=== PATIENT | male | born 1930 | race Caucasian/White ===

== ENCOUNTER 2017-01-15 05:18 | Day surgery (SDC) ==
[2017-01-11 14:18] LABS: MANUAL DIFF NEEDED? NO
[2017-01-11 14:21] LABS: BASO% 0.3 % (0.0-0.8); EOS# 1.35 X1000 (0.0-0.7); EOS% 13.7 % (0.0-10.0); HEMATOCRIT 35.5 % (42.0-52.0); HEMOGLOBIN 11.5 g/dL (14.0-18.0); IMM GRAN# 0.02 X1000 (0.0-0.04); IMM GRAN% 0.2 % (0.0-0.5); LYMPH% 21.3 % (20.5-51.1); MCH 30.7 PG (27-31); MCHC 32.4 g/dL (33-37); MCV 94.9 FL (81-99); MONO# 0.69 X1000 (0.11-0.59); MPV 8.9 FL (7.4-10.4); NEUT% 57.5 % (42.2-75.2); PLT 299 X1000 (130-400); RBC 3.74 XMIL (4.7-6.1)
[2017-01-11 15:04] LABS: CALCIUM 8.4 mg/dL (8.8-10.2)
[2017-01-15] MEDS ORDERED: LR 1,000 ML ONE (05:48)
[2017-01-15] MEDS ORDERED: KEFZOL 2 GM/D5W 50 ML ONE (05:48)
[2017-01-15] MEDS ORDERED: SENSORCAINE-MPF 0.5%/EPI 1:200,000 ONE (06:50)
[2017-01-15] MEDS ORDERED: FENTANYL ONE (07:59)
[2017-01-15] MEDS ORDERED: DIPRIVAN 1% ONE (08:00)
[2017-01-15] MEDS ORDERED: NEO-SYNEPHRINE ONE (08:46)
[2017-01-15] MEDS ORDERED: XYLOCAINE-MPF 2% ONE (08:47)
[2017-01-15] MEDS ORDERED: EPHEDRINE ONE (08:47)
--- NOTE | 2017-01-15 09:00 | OPERATIVE NOTE ---
PROCEDURE DATE: 01/15/2017 PREOPERATIVE DIAGNOSIS: Right carpal tunnel syndrome. POSTOPERATIVE DIAGNOSIS: Right carpal tunnel syndrome. PROCEDURE PERFORMED: Right carpal tunnel release. ANESTHESIA: General. SURGEON: Jason Milian MD COMPLICATIONS: None. BLOOD LOSS: Minimal. DESCRIPTION OF PROCEDURE: The patient was brought to operative suite and placed in supine position. After satisfactory administration of general anesthesia, a well-padded tourniquet was placed on the right proximal arm. The right upper extremity was prepped and draped in the usual fashion. The arm was exsanguinated. Tourniquet insufflated to 250 torr. A longitudinal incision was made beginning 2 cm distal to the distal wrist crease, in line with the third webspace, extended distally 2 cm. It was dissected sharply through the skin and subcutaneous tissue, well away from motor recurrent branch of the median nerve and the palmar cutaneous branch of the median nerve. The palmar cutaneous fascia, transverse carpal ligament, and distal volar fascia of the forearm were divided sharply under direct visualization. The contents of the carpal tunnel were inspected. There were no neural strictures, no tendon adhesions, no mass effects, no other pathology identified. The wound was then reapproximated with interrupted nylon suture. The wound and carpal tunnel were injected with Marcaine and a sterile dressing was applied. The patient tolerated the procedure well without complication. At the end of the procedure, all counts correct x2. The patient was transferred to the recovery room in stable condition.
[2017-01-15 09:27] VITALS: BP 140/69
== END 2017-01-15 09:28 | disposition home or self-care (01) ==
LOC: OPS 05:18
PROVIDERS: ATTEND Orthopaedic Surgery
DX: G56.01 Carpal tunnel syndrome, right upper limb (principal); I10 Essential (primary) hypertension; E03.9 Hypothyroidism, unspecified; Z85.3 Personal history of malignant neoplasm of breast
CPT/HCPCS: 80048; 85025; J0690; J2370; J3010; J7120; S0020

== ENCOUNTER 2017-06-07 10:48 | Inpatient (IN) ==
[2017-06-07 11:51] LABS: MANUAL DIFF NEEDED? NO
[2017-06-07 11:52] LABS: BASO% 0.4 % (0.0-0.8); EOS# 0.63 X1000 (0.0-0.7); EOS% 7.7 % (0.0-10.0); HEMATOCRIT 30.8 % (42.0-52.0); HEMOGLOBIN 10.1 g/dL (14.0-18.0); IMM GRAN# 0.01 X1000 (0.0-0.04); IMM GRAN% 0.1 % (0.0-0.5); LYMPH# 1.51 X1000 (1.2-3.4); LYMPH% 18.6 % (20.5-51.1); MCH 31.7 PG (27-31); MCHC 32.8 g/dL (33-37); MCV 96.6 FL (81-99); MONO# 0.71 X1000 (0.11-0.59); MONO% 8.7 % (1.7-9.3); MPV 8.6 FL (7.4-10.4); NEUT% 64.5 % (42.2-75.2); PLT 328 X1000 (130-400); RBC 3.19 XMIL (4.7-6.1)
[2017-06-07 12:09] LABS: INR 1.06 (0.86-1.15); PROTIME 14.1 Seconds (12.1-15.5)
[2017-06-07 12:14] LABS: ALBUMIN 2.5 g/dL (3.5-5.0); CALCIUM 7.8 mg/dL (8.8-10.2); POTASSIUM 4.5 mmol/L (3.5-5.1); TOTAL BILIRUBIN 0.2 mg/dL (0.20-1.00); TOTAL PROTEIN 5.6 g/dL (6.3-8.3)
[2017-06-07] MEDS ORDERED: LOVENOX 1 MG/KG SUBQ ONE (13:21)
[2017-06-07] MEDS ORDERED: NORCO-7.5 PO ONE (13:22)
[2017-06-07] MEDS ORDERED: LOVENOX ONE (13:25)
[2017-06-07] MEDS ORDERED: PERCOCET-10 PO PRN (16:25)
[2017-06-07] MEDS ORDERED: COMPAZINE PO PRN (16:25)
[2017-06-07] MEDS ORDERED: ROBAXIN PO PRN (16:25)
[2017-06-07] MEDS ORDERED: LASIX PO PRN (16:25)
[2017-06-07] MEDS ORDERED: PHENERGAN PO PRN (16:25)
[2017-06-07] MEDS ORDERED: EUCERIN CREAM TOP PRN (16:25)
[2017-06-07] MEDS ORDERED: NORCO-7.5 PO PRN (16:25)
[2017-06-07] MEDS ORDERED: TESSALON PO PRN (16:25)
[2017-06-07] MEDS ORDERED: IMODIUM PO PRN (16:25)
[2017-06-07] MEDS ORDERED: ZOFRAN PO PRN (16:25)
[2017-06-07] MEDS ORDERED: TYLENOL PO PRN (16:25)
[2017-06-07] MEDS ORDERED: LOVENOX SUBQ SCH (17:00)
[2017-06-07] MEDS: XANAX PO SCH ×2 (17:13→20:29)
[2017-06-07] MEDS ORDERED: MORPHINE IV ONE (18:24)
[2017-06-07] MEDS ORDERED: MS CONTIN PO SCH (18:30)
--- NOTE | 2017-06-07 19:33 | HISTORY AND PHYSICAL ---
CHIEF COMPLAINT: DVT right leg. HISTORY OF PRESENT ILLNESS: This is an 87-year-old, male who has a history of TIA, hypertension, sleep apnea, hypothyroid, chronic back pain, left breast cancer, who presents to the emergency room to be evaluated for right lower extremity pain and swelling. He was found to have a popliteal DVT. He was given Lovenox 1 mg/kg and admitted for further evaluation and treatment. PAST MEDICAL HISTORY: Hypertension, chronic back pain, hypothyroid, TIA. PAST SURGICAL HISTORY: Subtotal gastrectomy due to bleeding ulcers, left mastectomy and multiple back surgeries. SOCIAL HISTORY: He denies alcohol, tobacco, or illicit drug use. He is a retired pharmacist. He does live alone but he has family that lives close and is active in his care. ALLERGIES: No known drug allergies. HOME MEDICATIONS: A list will be obtained. REVIEW OF SYSTEMS: A 14 point review of systems was discussed with the patient with pertinent positives being stated in the HPI. He denied chest pain, palpitations, dizziness, syncope, shortness of breath, PND, orthopnea, nausea, vomiting, diarrhea, constipation, black or bloody vomitus, black or bloody stools, hematuria, dysuria, frequency, urgency. PHYSICAL EXAMINATION: GENERAL: This is an 87-year-old male who is sitting in bed with no distress. VITAL SIGNS: Blood pressure is 143/65 with a heart rate of 90, respirations are 16, temperature is 97.6 degrees oral. room air saturations 98-100%. HEENT: Head is normocephalic, atraumatic. Pupils equal, round, reactive to light. EOMs are intact. Sclerae are anicteric. Mucous membranes are moist. NECK: Supple with trachea midline. CARDIOVASCULAR: Regular rate and rhythm. S1 and S2 are appreciated. PULMONARY: Breath sounds are clear with no increased work of breathing noted. GASTROINTESTINAL: Abdomen is soft, nontender, nondistended with bowel sounds in all 4 quadrants. GENITOURINARY: Deferred. EXTREMITIES: No clubbing, cyanosis, or edema to upper extremities and left lower extremity. Right lower extremity has about 3+ pitting edema from just above the knee down to the foot with pulses palpable x4. NEUROLOGIC: He is alert and oriented x3. Cranial nerves 2-12 grossly intact. DIAGNOSTICS: WBC 8.1 with hemoglobin 10.1, hematocrit 30.8 and platelets of 328,000. D-dimer is 1.86. Sodium is 135, potassium 4.5, BUN 17, creatinine 1.2, glucose of 118. Lower extremity Doppler revealed a popliteal DVT per ER records. ASSESSMENT AND PLAN: This is an 87-year-old male who presented to the emergency room complaining of swelling, edema and pain to his right lower extremity. He was found to have a right popliteal deep vein thrombus. 1. Right popliteal deep vein thrombus. 2. Gastroesophageal reflux disease. 3. Hypertension. 4. Chronic back pain on chronic narcotics. 5. GI prophylaxis and DVT prophylaxis. We will continue Lovenox b.i.d. tonight. We will start Xarelto in the morning. We will continue his Zantac. 6. Further treatments pending hospital course. Dictated by MINOR Emerson for Marcel Sosa MD cc: MINOR Emerson MD
[2017-06-07] MEDS: FLOMAX PO SCH (20:29)
[2017-06-07] MEDS: METAMUCIL PO SCH (20:31)
[2017-06-07] MEDS: TEMOVATE 0.05% CREAM TOP SCH (20:31)
[2017-06-07] MEDS ORDERED: PRAVACHOL PO SCH (21:00)
[2017-06-07] MEDS: MS CONTIN PO SCH (23:25)
[2017-06-08] MEDS ORDERED: LOVENOX SUBQ SCH (01:00)
[2017-06-08] MEDS ORDERED: XANAX PO SCH (06:00)
[2017-06-08] MEDS: MS CONTIN PO SCH ×2 (06:12→15:28)
[2017-06-08 06:50] LABS: AGAP 7; BUN 20 mg/dL (8-22); CALCIUM 8.1 mg/dL (8.8-10.2); CHLORIDE 107 mmol/L (98-107); COSMO 284; POTASSIUM 5.1 mmol/L (3.5-5.1); SODIUM 140 mmol/L (136-145); TCO2 26 mmol/L (25-35)
[2017-06-08] MEDS ORDERED: SYNTHROID PO SCH (07:00)
[2017-06-08 07:48] LABS: HEMATOCRIT 31.9 % (42.0-52.0); HEMOGLOBIN 10.6 g/dL (14.0-18.0); MCH 31.9 PG (27-31); MCHC 33.2 g/dL (33-37); MCV 96.1 FL (81-99); RBC 3.32 XMIL (4.7-6.1)
[2017-06-08] MEDS ORDERED: ZOFRAN ODT PO PRN (08:37)
[2017-06-08] MEDS: ZANTAC PO SCH ×2 (08:37→15:28)
[2017-06-08] MEDS ORDERED: XARELTO PO SCH (09:00)
[2017-06-08] MEDS ORDERED: PATIENT'S OWN MED PO SCH (09:00)
[2017-06-08] MEDS ORDERED: PLAVIX PO SCH (09:00)
[2017-06-08] MEDS ORDERED: ZYLOPRIM PO SCH (09:00)
[2017-06-08] MEDS ORDERED: THERA M PLUS PO SCH (09:00)
[2017-06-08] MEDS ORDERED: LOTENSIN PO SCH (09:00)
[2017-06-08] MEDS ORDERED: ASPIRIN PO SCH (09:00)
[2017-06-08] MEDS ORDERED: NORVASC PO SCH (09:00)
[2017-06-08] MEDS: FLOMAX PO SCH (10:45)
[2017-06-08] MEDS: TEMOVATE 0.05% CREAM TOP SCH (10:46)
[2017-06-08] MEDS: XANAX PO SCH ×2 (10:46→13:31)
[2017-06-08] MEDS: METAMUCIL PO SCH (11:33)
--- NOTE | 2017-06-08 15:27 | Diag Imaging Result Doc PS360 ---
EXAM: CHEST-PORTABLE HISTORY: Assisted Living Placement TECHNIQUE: Single view of the chest was performed portably. COMPARISON: 11/06/2016 FINDINGS: The cardiomediastinal silhouette is within normal limits. The pulmonary vasculature is not congested. No infiltrate, effusion, or pneumothorax is appreciated. IMPRESSION: No acute cardiopulmonary abnormality is identified. Electronically signed by Opal Asif 06/08/2017 3:25 PM
[2017-06-08 15:42] VITALS: BP 137/65
--- NOTE | 2017-06-08 21:17 | DISCHARGE SUMMARY ---
ADMISSION DATE: 06/07/2017 DISCHARGE DATE: 06/08/2017 DIAGNOSES: 1. Right popliteal deep vein thrombus. 2. Gastroesophageal reflux disease. 3. Hypertension. 4. Chronic back pain on chronic narcotics. HOSPITAL COURSE: Mr. Lang presented to the emergency room for evaluation of right lower extremity pain and swelling. He was found to have a popliteal DVT. He was given Lovenox 1 mg/kg every 12 hours. Once we verified that he could afford Xarelto, we began Xarelto 15 mg b.i.d. He will be discharged on this for 21 days, then Xarelto 20 mg daily. PHYSICAL EXAMINATION: Cardiovascular: Regular rate and rhythm. S1, S2 appreciated. Pulmonary: Breath sounds are clear. Chest rises and falls symmetrically respiration. No increased work of breathing noted. Gastrointestinal: Abdomen is soft, nontender, nondistended with bowel sounds in all 4 quadrants. Extremities: No clubbing, cyanosis, or edema to upper extremities or left lower extremity. Right lower extremity has pitting edema from the knee down to the foot with pulses palpable x4. His foot was kept elevated throughout the hospitalization and edema has decreased since admission. DISCHARGE MEDICATIONS: 1. MS Contin 30 mg p.o. t.i.d. 2. Lanolin cream b.i.d. p.r.n. 3. Robaxin 750 b.i.d. p.r.n. 4. Tessalon Perles p.r.n. 5. [place] 7.5/325, 1 every 6 hours p.r.n. with a maximum of 4 tablets daily. 6. Tylenol 650 q.6 hours p.r.n. 7. Phenergan 25 mg q.8 hours p.r.n. 8. Furosemide 10 mg daily. 9. Clobetasol Propionate topical twice a day. 10. Loperamide 2 q.4 hours p.r.n. 11. Metamucil b.i.d. 12. Compazine 10 mg q.4-6 hours p.r.n. 13. Alprazolam 1 mg daily. 14. Allopurinol 300 daily. 15. Multivitamin daily. 16. Aspirin 81 mg daily. 17. Lotrel 520 daily. 18. Nuvigil 250 daily. 19. Alprazolam ODT 0.5, 4 times a day. 20. Pravachol 80 mg at bedtime. 21. Plavix 75 daily. 22. Ranitidine 150 b.i.d. 23. Flomax 0.4 b.i.d. 24. Levothyroxine 50 mcg daily. 25. Zofran 4 mg q.8 hours p.r.n. 26. Xarelto 15 mg b.i.d. for 21 days then discontinue. 27. Xarelto 20 mg daily to be started after completing 15 mg b.i.d. prescription. DISCHARGE ACTIVITY: As tolerated. FOLLOWUP: 1. He needs to follow up with his primary care physician in the next 1-2 weeks. He needs to call for an appointment. 2. He has been instructed to call to be seen sooner or return to the emergency room for pain, change in sensation or temperature of his right lower extremity, increased swelling of the right lower extremity, any chest pain, palpitations, syncope, shortness of breath, cough, or any other questions or concerns that he may have. CONDITION AT DISCHARGE: He is being discharged home in stable condition with family members. TIME SPENT: This is a greater than 30 minute discharge. Dictated by MINOR Emerson for Marcel Sosa MD cc: MINOR Emerson MD
--- NOTE | 2017-06-11 09:37 | Extremity Venous Study ---
EXAM: Venous U/S Right Leg HISTORY: leg swelling and pain TECHNIQUE: Compression venous ultrasound of the right lower extremity with color Doppler COMMENT: The right popliteal posterior tibial and peroneal veins are incompressible without color Doppler flow. No demonstrated superficial venous thrombosis is present. IMPRESSION: Occlusive deep venous thrombosis as described above. Electronically signed by Baron Stewart 06/07/2017 12:54 PM
== END 2017-06-08 16:55 | disposition home health service (06) ==
LOC: P.ED 10:48 → P.MEDSURG 14:08
PROVIDERS: ATTEND Family Medicine

== ENCOUNTER 2017-07-09 09:58 | Inpatient (IN) ==
[2017-07-09] MEDS ORDERED: LASIX IV ONE (10:20)
--- NOTE | 2017-07-09 10:31 | EKG Report ---
Test Performed on : 07/09/2017 10:28:10 AM Test Reason : CHEST PAIN Blood Pressure : / mmHG Vent. Rate : 102 BPM Atrial Rate : 102 BPM P-R Int : 208 ms QRS Dur : 092 ms QT Int : 330 ms P-R-T Axes : 053 -02 042 degrees QTc Int : 430 ms Sinus tachycardia. Otherwise normal ECG When compared with ECG of 29-JUN-2017 13:43, No significant change was found Unconfirmed Result
[2017-07-09 10:33] LABS: MANUAL DIFF NEEDED? NO
[2017-07-09 10:39] LABS: INR 1.44 (0.86-1.15); PROTIME 18.7 Seconds (12.1-15.5)
[2017-07-09 10:40] LABS: PTT PL 43.1 Seconds (22.6-43.9)
[2017-07-09 10:42] LABS: BASO% 0.5 % (0.0-0.8); EOS# 0.28 X1000 (0.0-0.7); EOS% 3.5 % (0.0-10.0); HEMATOCRIT 30.2 % (42.0-52.0); HEMOGLOBIN 9.6 g/dL (14.0-18.0); IMM GRAN# 0.01 X1000 (0.0-0.04); IMM GRAN% 0.1 % (0.0-0.5); LYMPH# 1.13 X1000 (1.2-3.4); LYMPH% 14.2 % (20.5-51.1); MCH 32.2 PG (27-31); MCHC 31.8 g/dL (33-37); MCV 101.3 FL (81-99); MONO# 0.48 X1000 (0.11-0.59); MPV 9.1 FL (7.4-10.4); NEUT% 75.7 % (42.2-75.2); PLT 271 X1000 (130-400); RBC 2.98 XMIL (4.7-6.1)
--- NOTE | 2017-07-09 10:48 | Diag Imaging Result Doc PS360 ---
EXAM: CHEST-PORTABLE - 07/09/2017 HISTORY: sob/cp TECHNIQUE: Portable chest 10:22 AM COMPARISON: 06/29/2017 FINDINGS: Heart size appears within normal limits. There is mild tortuosity of the thoracic aorta. Inspiration is mildly shallow. Allowing for inspiration, the lungs appear essentially clear. There is no consolidation, vascular congestion, pleural effusion, or pneumothorax identified. IMPRESSION: Mildly shallow inspiration. No other evidence of acute disease. Electronically signed by Casper Robert 07/09/2017 10:45 AM
[2017-07-09 10:54] LABS: ALBUMIN 2.7 g/dL (3.5-5.0); MAGNESIUM 1.8 mg/dL (1.5-2.7); POTASSIUM 4.7 mmol/L (3.5-5.1); TOTAL BILIRUBIN 0.3 mg/dL (0.20-1.00)
[2017-07-09 11:27] LABS: CK INDEX 3.1 (0.0-2.5); CK-MB 23.18 ng/mL (0.0-5.0)
--- NOTE | 2017-07-09 14:09 | EKG Report ---
Test Performed on : 07/09/2017 2:03:19 PM Test Reason : repeat Blood Pressure : / mmHG Vent. Rate : 095 BPM Atrial Rate : 095 BPM P-R Int : 212 ms QRS Dur : 092 ms QT Int : 346 ms P-R-T Axes : 060 -02 039 degrees QTc Int : 434 ms Sinus rhythm. with 1st degree AV block. Inferior infarct , age undetermined Abnormal ECG When compared with ECG of 09-JUL-2017 10:28, (Unconfirmed) No significant change was found Unconfirmed Result
[2017-07-09] MEDS ORDERED: ZOFRAN IV PRN ×2 (15:00→18:44)
[2017-07-09] MEDS ORDERED: LOVENOX 1 MG/KG SUBQ ONE (15:04)
[2017-07-09 15:07] LABS: CK INDEX 3.5 (0.0-2.5); CK-MB 23.08 ng/mL (0.0-5.0)
[2017-07-09] MEDS ORDERED: SODIUM CHLORIDE 0.9% INJ SCH (15:15)
--- NOTE | 2017-07-09 15:40 | PROVIDER DOCUMENTATION ---
This chart was entered by Shasha Stahl Scribe, acting as scribe for Vanessa Ponce MD. HPI-General Adult - General Chief Complaint: Weakness Stated Complaint: GENERALIZED WEAKNESS Time Seen by Provider: 07/09/17 10:10 Source: patient Allergies/Adverse Reactions: Patient Allergies Allergy/AdvReac Type Severity Reaction Status Date / Time No Known Allergies Allergy Verified 01/15/17 05:51 Home Medications: Home Medication List Medication Instructions Recorded Confirmed Last Taken Type AMLODIPINE/BENAZEpril [Lotrel 03/31 1 each PO DAILY 03/05/13 06/07/17 01/14/17 History mg] Alprazolam [Alprazolam Odt] 0.25 mg PO TID 03/05/13 06/07/17 01/14/17 History Aspirin 81 mg PO DAILY 03/05/13 06/07/17 01/01/17 History Clopidogrel [Plavix] 75 mg PO DAILY 03/05/13 06/07/17 01/08/17 History Levothyroxine [Synthroid] 50 microgm PO DAILY@0700 03/05/13 06/07/17 01/14/17 History Methocarbamol [Robaxin-750] 750 mg PO BID PRN PRN 03/05/13 06/07/17 01/14/17 20: 00 History Morphine E.r. [Ms Contin] 30 mg PO TID@0700,1500,2300 03/05/13 06/07/17 05:00 History PRAVAstatin [Pravachol] 80 mg PO QHS 03/05/13 06/07/17 01/14/17 History Tamsulosin HCl [Flomax] 0.4 mg PO DAILY 03/05/13 06/07/17 01/14/17 History Ondansetron HCl [Zofran] 4 mg PO Q8H PRN PRN #20 tablet 05/13/14 06/07/17 Unknown Rx Allopurinol [Zyloprim] 300 mg PO DAILY 01/11/17 06/07/17 01/14/17 History Armodafinil [Nuvigil] 250 mg PO DAILY 01/11/17 06/07/17 01/14/17 History Benzonatate [Tessalon Perle] 100 mg PO TID PRN PRN 01/11/17 06/07/17 01/14/17 History Furosemide 10 mg PO QAM PRN 01/11/17 06/07/17 01/14/17 20:00 History Hydrocodone/Acetaminophen [[place] 1 each PO Q6H PRN PRN MDD 4 TABS 01/11/1706/0701/14/17 20:00 History 7.5-325 Tablet] Lanolin Cream [Lantiseptic Cream] 130 gm TOP BID PRN PRN 01/11/17 06/07/1701/14 History Loperamide [Imodium] 2 mg PO Q4H PRN PRN MDD 5XDAY 01/11/17 06/07/17 01/14/17 History Multivitamin with Minerals 1 each PO DAILY 01/11/17 06/07/17 01/14/17 20:00 History [Multiple Vitamin] Oxycodone HCl/Acetaminophen 0.5 - 1 tab PO BID PRN PRN 01/11/17 06/07/17 Unknown History [Endocet 10-325 mg Tablet] Prochlorperazine [Compazine] 10 mg PO Q4-6H PRN PRN 01/11/17 06/07/17 01/14/17 History Promethazine [Phenergan] 25 mg PO Q8H PRN PRN 01/11/17 06/07/17 Unknown History Acetaminophen [Tylenol] 650 mg PO Q6H PRN PRN 06/07/17 06/07/17 Unknown History Alprazolam 1 mg PO ORDERED 06/07/17 06/07/17 Unknown History Clobetasol Propionate 15 gm TOP BID 06/07/17 06/07/17 Unknown History Psyllium Husk [Metamucil] 1 each PO BID 06/07/17 06/07/17 Unknown History Ranitidine HCl 150 mg PO BID AC 06/07/17 06/07/17 Unknown History Rivaroxaban [Xarelto] 15 mg PO BID #42 tablet 06/08/17 Unknown Rx Rivaroxaban [Xarelto] 20 mg PO DAILY #30 tablet 06/08/17 Unknown Rx - History of Present Illness -Gen Adult Nature of Presenting Problems: Pt is 87 y/o M presents to the ED via EMS for generalized weakness. Pt states weakness has been present for 4 days. Pt states legs gave out on him this am and he had to sit in the floor. Pt states chronic back pain. Pt states takes pain meds for chronic pain daily. Location of Pain/Injury: reports: none Pain Radiation: reports: no radiation Quality of Pain: reports: none Severity: reports: mild Onset/Duration: reports: 4 days ago Timing: reports: still present Context/Activities at Onset: reports: light activity Modifying Factors: improves with: nothing Associated Symptoms: reports: weakness, trouble walking. denies: anxiety, arm pain, back/neck pain, chest pain, constipation, cough, diaphoresis, diarrhea, dizziness, EENT symptoms, fatigue, fever/chills, genitourinary problems, headaches, heartburn, joint pain, loss of appetite, malaise, muscle aches, sinus congestion/drainage, nausea, rash, seizure, shortness of breath, sensory/ motor loss, pain with inspiration, swelling/mass in abdomen, syncope, vomiting Similar Symptoms Previously?: Yes (present for 4 days ) Recently seen or treated by another doctor?: No Review of Systems - Adult - REVIEW OF SYSTEMS - ADULT Constitutional: reports: no symptoms reported Eyes: reports: no symptoms reported Ears, Nose, Mouth & Throat: reports: no symptoms reported Cardiovascular: reports: no symptoms reported Respiratory: reports: no symptoms reported Gastrointestinal: reports: no symptoms reported Genitourinary: reports: no symptoms reported Musculoskeletal: reports: muscle weakness. denies: back pain, joint pain, neck pain Integumentary: reports: no symptoms reported Neurological: reports: no symptoms reported Psychiatric: reports: no symptoms reported Endocrine: reports: no symptoms reported Hematologic/Lymphatic: reports: no symptoms reported Allergic/Immunologic: reports: no symptoms reported All Other Systems: Reviewed and Negative Past History - Adult - PAST MEDICAL HISTORY-ADULT Review of Records: reports: Nursing Assessment Review, Medications Reviewed, Social history reviewed & non-contributory. Major Childhood Illnesses: reports: denies history Cardiovascular: reports: HTN, hyperlipidemia Respiratory: reports: sleep apnea Gastrointestinal: reports: GERD, obstruction (small bowel), ulcer (bleeding) Obstetrical/Gynecological: reports: denies history Genitourinary: reports: other (enlarged prostate) Musculoskeletal: reports: chronic pain (back) Neurological: reports: TIA Endocrine/Immune: reports: thyroid disorder Other Conditions: reports: denies history - PRIOR SURGERIES/PROCEDURES Surgical/Procedure History: reports: appendectomy, other (hernia, small bowel obstruction, subtotal gastrectomy) - IMMUNIZATION STATUS Childhood Immunizations: See Nurse Assessment Flu Vaccine: See Nurse Assessment - FAMILY HISTORY Family History: reviewed, not pertinent - SOCIAL HISTORY Smoking: non-smoker Substance Use: denies Living Situation: family Physical Exam-General - PHYSICAL EXAM-ADULT Initial Vital Signs Reviewed: Yes - CONSTITUTIONAL General Appearance: alert, no apparent distress. negative: lethargic, slow to respond - EYES Eyes: PERRL/EOMI, pink conjunctivae. negative: pale conjunctivae, sunken eyes - HEAD, EARS, NOSE, MOUTH & THROAT HENMT: normal ENT inspection. negative: angioedema, hearing deficit - NECK Neck: normal inspection. negative: lymphadenopathy, tender lateral - RESPIRATORY Respiratory: chest non-tender, lungs clear, normal breath sounds. negative: crackles, wheezing, increased rate - CARDIOVASCULAR Cardiovascular: normal peripheral pulses, tachycardia, systolic murmur - GASTROINTESTINAL (ABDOMEN) Abdominal Exam: normal bowel sounds, non tender, soft. negative: distended, rebound, hernia - LYMPHATIC Lymphatic: no adenopathy. negative: enlargement, streaking - MUSCULOSKELETAL Back Exam: normal inspection. negative: ecchymosis, swelling Extremity: normal range of motion, non-tender, swelling (bilateral legs). negative: erythema, tenderness - SKIN Integumentary: normal color, normal turgor, warm/dry, swelling (bilateral legs) . negative: diaphoresis, ecchymosis, erythema, tenderness - NEUROLOGIC Neurologic: grossly normal. negative: aphasia, facial droop - PSYCHIATRIC Psych/Mental Status: normal mood/affect, oriented x 3. negative: disheveled, tearful Progress - PLAN OF CARE/RESULTS Progress/Plan/Lab Results: Vital Signs - 8 hr 07/09/17 10:01 Temperature 97.3 F L Pulse Rate 104 H Respiratory Rate 13 Blood Pressure 138/75 O2 Sat by Pulse Oximetry 100 Result Diagrams: 07/09/17 10:00 07/09/17 10:00 - EKG 1 Time of EKG reading by physician:: 10:28 EKG Read and Signed by:: Vanessa Ponce EKG Interpretation (*Must complete 3 of following elements*): Abnormal Rate: 102 Rhythm: sinus tachycardia Comments: otherwise normal ECG 2 Time of EKG reading by physician:: 14:03 EKG Read and Signed by:: Vanessa Ponce EKG Interpretation (*Must complete 3 of following elements*): Abnormal Rate: 95 Rhythm: sinus rhythm with 1st degree AV block Comments: inferior infarct, age undetermined - XRAY 1 XRAY Study: Chest Impression: Abnormal (mildly shallow inspirations. no other evidence of acute disease) - CONSULTS/PCP/HOSPITALIST Notification #1 *Consult/PCP/Hospitalist*: Dr. Sosa Time Discussed: 12:45 Reason/Comments: Dr. Ponce consulted with Dr. Sosa about Pt Consult Disposition: Will see in ED Departure - Departure Date of Disposition Decision: 07/09/17 Time of Disposition Decision: 15:37 DIAGNOSIS: Generalized weakness, Renal failure, Elevated troponin Disposition: ADMITTED INPATIENT 09 Certified Medical Emergency: Emergent Condition: Stable - Critical Care Note This patient required my direct & personal management of CC.: No Attestation - Physician/ EDI Attestation Patient care was provided by Advanced Practice Provider:: No The physician spent face to face time with patient:: Yes Advanced Practice Provider documentation review:: Supervising physician onsite and consulted in the evaluation and care of this patient. The physician did have a face to face encounter with the patient. This chart was documented by the indicated scribe, (Shasha Stahl Scribe) and accurately reflects the services I performed and decisions made by me, Vanessa Ponce MD, as attested by the provider's signature.
[2017-07-09] MEDS: PROTONIX IV SCH (17:35)
[2017-07-09] MEDS ORDERED: MS CONTIN PO PRN (17:51)
[2017-07-09] MEDS ORDERED: TYLENOL PO PRN (17:51)
[2017-07-09] MEDS ORDERED: NORCO-7.5 PO PRN (17:51)
[2017-07-09] MEDS ORDERED: COMPAZINE PO PRN (17:51)
[2017-07-09] MEDS ORDERED: ROBAXIN PO PRN (17:51)
--- NOTE | 2017-07-09 19:54 | HISTORY AND PHYSICAL ---
CHIEF COMPLAINT: Generalized weakness and fall. HISTORY OF PRESENT ILLNESS: This is an 87-year-old male who presented to the emergency room via EMS after being found on the floor in his room for an undetermined amount of time. His son stated that he has noticed weakness in his father throughout the week stating that he took him out to eat about 5-6 days ago and he did fine on the way to the restaurant, but on the way home and getting into his apartment he said that he was so weak he had to be assisted back in which is very unusual for him. Last night he was found the patient sitting at a desk with his head down on the desk by the assisted living staff who felt he was asleep. He did wake and they were able to assist him to his room. This morning when they checked on him, he was found on the floor. It is unclear if there was loss of consciousness during these 2 episodes. He was not incontinent of stool or urine this morning when being found. The patient has no recollection of falling nor going to sleep at the desk last night. He denies generalized weakness, chest pain, palpitations, dizziness, syncope. He was awake and alert on admission to the emergency room. Vital signs were stable. He was noted to have a troponin of 0.151 with a CPK of 741 and a creatinine of 2.6. Of note, he did have a recent right popliteal DVT and was started on Xarelto in May for this. EKG revealed sinus rhythm with a first-degree block. PAST MEDICAL HISTORY: Left breast cancer, hypertension, chronic back pain with chronic opioid use, hypothyroid, TIA, GI bleed due to gastric ulcers. PAST SURGICAL HISTORY: Subtotal gastrectomy due to bleeding ulcers, left mastectomy, multiple back surgeries. SOCIAL HISTORY: He denies alcohol, tobacco, or illicit drug use. 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 ALLERGIES: No known drug allergies. HOME MEDICATIONS: A list will be obtained. REVIEW OF SYSTEMS: A 14 point review of systems is discussed with the patient with pertinent positives stated in HPI. He denied chest pain, palpitations, dizziness, syncope , shortness of breath, cough, fever, chills, nausea, vomiting, diarrhea, constipation, black or bloody vomitus, black or bloody stools, hematuria, dysuria, frequency, urgency. PHYSICAL EXAMINATION: GENERAL: This is an 87-year-old male who is lying in the bed, in no distress. VITAL SIGNS: Blood pressure is 127/66 with a heart rate of 93, respirations are 20, temperature is 97.6 degrees with O2 saturations of 99-100% on 2 L nasal cannula. HEENT: Head is normocephalic, atraumatic. Pupils equal, round, reactive to light. EOMs are intact. Sclerae anicteric. Mucous membranes are dry. NECK: Supple. Trachea midline. CARDIOVASCULAR: Regular rate and rhythm. S1, S2 appreciated. PULMONARY: Breath sounds are clear with no increased work of breathing noted. GASTROINTESTINAL: Soft, nontender, nondistended, bowel sounds in all 4 quadrants. GENITOURINARY: Deferred. EXTREMITIES: No clubbing or cyanosis. He does have some bilateral lower extremity edema from just below the knees down. Calves are nontender. SKIN: Warm and dry. NEUROLOGIC: He is alert and oriented x3, with cranial nerves 2-12 grossly intact. DIAGNOSTICS: His chest x-ray revealed no acute processes. LABS: Sodium 134, potassium 4.7, BUN 49, creatinine 2.6, glucose of 86. CPK is 741 with a CK-MB of 23.18 and a troponin is 0.151, repeated troponin was 0.128. WBC is 7.9 with hemoglobin 9.6, hematocrit 30.2, platelets of 271,000, INR is 1.44. ASSESSMENT: This is a 87-year-old male who presented with generalized weakness and fall. He is noted to have elevated troponin. 1. Elevated troponin. 2. Generalized weakness. 3. Acute kidney injury. 4. Rhabdomyolysis . 5. Recent DVT right popliteal, currently on Xarelto. 6. Hypertension. 7. Chronic back pain on multiple opioids, chronic. PLAN: He will be admitted to the hospital and placed on telemetry. We will give IV hydration. I did speak with Dr. Shamar Pacheco in Cardiology. We will continue to trend his troponins. We will get a V/Q lung scan today as we cannot do a CTA pulmonary due to his creatinine. We will get an echocardiogram today. We will identify his home medications and continue as appropriate. We will recheck his labs in the morning. We will place a Woodward catheter at present to monitor I and O. Once echo and V/Q scan results return, then further decisions will be made per Cardiology. We will stop his Xarelto and start Lovenox 1 mg/kg b.i.d. which can easily be stopped if he needs any cardiac interventions. We will continue to trend troponin and CPK. We will renal dose any medications as appropriate. We will hold any renal toxic medications. Further treatments pending hospital course. Dictated by MINOR Emerson for Marcel Sosa MD cc: MINOR Emerson MD [facility]
[2017-07-09] MEDS ORDERED: PRAVACHOL PO SCH (21:00)
--- NOTE | 2017-07-09 22:11 | Diag Imaging Result Doc PS360 ---
EXAM: TEMPORARY HISTORY: Deep venous thrombosis and weakness TECHNIQUE: 38.8 mCi of technetium 99m DTPA aerosol for the ventilation portion the study and 5.95 mCi of technetium 99m MAA for the perfusion portion the study. COMMENT: There is no evidence of ventilation/perfusion mismatch. There are no perfusion defects. IMPRESSION: Normal study. Electronically signed by Baron Stewart 07/09/2017 8:48 PM
[2017-07-09] MEDS: NS 1,000 ML IV SCH (22:29)
[2017-07-09] MEDS: LOVENOX SUBQ SCH (22:29)
[2017-07-09] MEDS: CYMBALTA PO SCH (22:30)
[2017-07-09] MEDS: XANAX PO SCH (22:30)
[2017-07-09] MEDS: FIBERCON PO SCH (22:30)
[2017-07-09] MEDS: FLOMAX PO SCH (22:30)
--- NOTE | 2017-07-10 03:38 | HISTORY AND PHYSICAL ---
ADDENDUM We received a communication from the staff at [facility] where the patient is a resident stating that Mr. Lang has been extremely weak and is pale. He is falling asleep in his plate at the table during meals. He says he has a feeling of overall malaise. We feel that he may need a decrease in his Xanax and there has been a recent physician order on the that changed his Xanax to 0.25 t.i.d. and 1 mg daily. We will give Xanax 0.5 b.i.d. scheduled to assure that he does not go through withdrawal and as he is so sedated, we will hold any sedating medications at present and then they can be added as appropriate once he is more alert. Dictated by MINOR Emerson for Marcel Sosa MD cc: MINOR Emerson MD MTDD
[2017-07-10] MEDS: NS 1,000 ML IV SCH ×2 (06:32→15:28)
[2017-07-10] MEDS: PROTONIX IV SCH ×2 (06:34→15:23)
[2017-07-10] MEDS: SYNTHROID PO SCH (06:35)
[2017-07-10 06:45] LABS: ALBUMIN 2.5 g/dL (3.5-5.0); CALCIUM 7.9 mg/dL (8.8-10.2); POTASSIUM 4.3 mmol/L (3.5-5.1); TOTAL BILIRUBIN 0.2 mg/dL (0.20-1.00); TOTAL PROTEIN 5.4 g/dL (6.3-8.3)
[2017-07-10 06:47] LABS: HEMATOCRIT 30.1 % (42.0-52.0); HEMOGLOBIN 9.8 g/dL (14.0-18.0); MCH 32.8 PG (27-31); MCHC 32.6 g/dL (33-37); MCV 100.7 FL (81-99); MPV 9.2 FL (7.4-10.4); RBC 2.99 XMIL (4.7-6.1)
--- NOTE | 2017-07-10 08:10 | ECHO REPORT ---
ORDER DATE: 07/09/2017 INTERPRETING PHYSICIAN: Leonardo Huerta MD. CLINICAL INDICATIONS: Elevated troponin, elevated proBNP. Presumably, the referring doctor means to evaluate for non-ST myocardial infarction and possibly congestive heart failure, I hope. M-MODE MEASUREMENTS: Right ventricle: 3.0 cm. Left ventricle end diastole: 4.5 cm. Left ventricle end systole: 3.0 cm. Posterior wall: 1.0 cm. Interventricular septum: 1.0 cm. Left atrium: 4.1 cm. Aortic root: 3.2 cm. SUMMARY OF 2-DIMENSIONAL IMAGIN. The left ventricular function is normal. Ejection fraction is 72%. 2. The right ventricle appears to be moderately enlarged. The left ventricle is not dilated. 3. The aortic valve is density calcified and it shows restricted opening consistent with aortic stenosis. 4. The study was very limited, and therefore, adequate measurements of LVOT could not be carried out. Also, the LVOT VTI, in my opinion, is not accurate. I cannot really estimate the aortic valve area. However, based on the mean gradient, which is 32 mmHg, and the maximum gradient, which is about 47 mmHg, this case could be a case of a moderate to severe degree of aortic stenosis. Additional testing may be required to pinpoint the exact severity with more accuracy. 5. The mitral annulus is moderately calcified. The leaflets of the mitral valve open normally. Pulsed wave Doppler of mitral inflow shows reversal of the E and the A ratio. The ratio is 0.6. The tissue Doppler of the septal and lateral mitral annulus averages 7 cm. Pulsed wave Doppler of pulmonary venous flow is normal. 6. The tricuspid valve shows a mild to moderate degree of regurgitation. The inferior vena cava is mildly enlarged. Pulmonary pressure is estimated at 49-65 mmHg. 7. The pulmonic valve appears to be unremarkable. 8. There is no pericardial effusion, masses, nor thrombus. SUMMARY: In summary, this study shows: 1. Technically limited study for accurate evaluation of severity of aortic stenosis. 2. Excellent left ventricular systolic function without wall motion abnormality. 3. There is a moderate to possibly severe degree of aortic stenosis. The mean gradient is 32 mmHg, the maximum gradient 47 mmHg. The valve area cannot be calculated in this study. 4. Calcification of the mitral annulus with a mild degree of mitral regurgitation. There is no diastolic dysfunction. 5. There is pulmonary hypertension in the range of 49-54 mmHg with a mild to moderate degree of tricuspid regurgitation. Clinical correlation is strongly recommended. cc: MD Valarie Carrasco CRNP
[2017-07-10] MEDS: ASPIRIN PO SCH (08:55)
[2017-07-10] MEDS: FLOMAX PO SCH ×2 (08:55→20:05)
[2017-07-10] MEDS: FIBERCON PO SCH ×2 (08:55→20:05)
[2017-07-10] MEDS: ZANTAC PO SCH ×2 (08:55→15:23)
[2017-07-10] MEDS: NUVIGIL PO SCH (08:56)
[2017-07-10] MEDS: XANAX PO SCH ×2 (08:56→17:49)
[2017-07-10] MEDS: PLAVIX PO SCH (08:56)
[2017-07-10] MEDS: NORVASC PO SCH (08:56)
[2017-07-10] MEDS ORDERED: ZYLOPRIM PO SCH (09:00)
[2017-07-10] MEDS ORDERED: KLOR-CON PO SCH (09:00)
[2017-07-10] MEDS ORDERED: LOTENSIN PO SCH (09:00)
[2017-07-10] MEDS ORDERED: XANAX PO SCH (09:00)
[2017-07-10] MEDS ORDERED: BLISTEX MEDICATED BERRY LIP BALM TOP PRN (10:23)
[2017-07-10] MEDS ORDERED: CALMOSEPTINE OINTMENT TOP PRN (10:23)
[2017-07-10] MEDS ORDERED: PERCOCET-10 PO PRN (14:16)
[2017-07-10] MEDS ORDERED: TESSALON PO PRN (14:16)
[2017-07-10 14:28] LABS: BILIRUBIN URINE NEGATIVE (NEGATIVE); BLOOD URINE 4+ (NEGATIVE); GLUCOSE URINE NEGATIVE (NEGATIVE); LEUKOCYTES URINE 1+ (NEGATIVE); NITRITE URINE NEGATIVE (NEGATIVE); PROTEIN URINE 1+(30 mg/dL) mg/dL (NEGATIVE); SP GRAVITY URINE 1.015; UROBILINOGEN URINE NORMAL
[2017-07-10 14:33] LABS: CLARITY HAZY (CLEAR); COLOR RED
[2017-07-10 14:34] LABS: URINE CAST NONE SEEN /LPF; URINE CRYSTAL NONE SEEN /HPF; URINE CULTURE PL NEEDED? YES; URINE EPITHELIAL CELLS <10 /HPF (<10); URINE RBC TNTC /HPF (<10); URINE WBC <10 /HPF (<10)
[2017-07-10 14:35] LABS: URINE SOURCE CLEAN CATCH
--- NOTE | 2017-07-10 14:42 | EKG Report ---
Test Performed on : 07/10/2017 2:29:24 PM Test Reason : elevated troponin Blood Pressure : / mmHG Vent. Rate : 110 BPM Atrial Rate : 110 BPM P-R Int : 200 ms QRS Dur : 090 ms QT Int : 326 ms P-R-T Axes : 086 047 065 degrees QTc Int : 441 ms Sinus tachycardia. Otherwise normal ECG When compared with ECG of 09-JUL-2017 14:03, Criteria for Inferior infarct are no longer present Unconfirmed Result
[2017-07-10 14:46] LABS: UR CREAT RANDOM 53.4 mg/dL (14-26); UR PROT RANDOM 25.4 mg/dL
--- NOTE | 2017-07-10 15:02 | PROGRESS NOTE ---
DATE: 07/10/2017 SUBJECTIVE: Patient feels like he has pain all over. OBJECTIVE: Blood pressure 122/51, heart rate 113, respiratory rate 18, temperature 98.8 degrees, 99% on 1 L.Cardiovascular: Regular rate and rhythm. Pulmonary: Bilateral breath sounds. Clear to auscultation. GI: Soft, nontender, nondistended. Bowel sounds are positive. LABORATORY DATA: White count 7, hemoglobin and hematocrit 9 and 30, platelets 281,000. BUN and creatinine of 40 and 2.2. Glucose is 59. Troponins have been two, 1.51, 1.3 is the last one. CK MBs were 23, 23. PROBLEM LIST: 1. Elevated troponins. Possible non ST elevation CT versus rhabdomyolysis. We will continue to monitor. He is being anticoagulated. He was already anticoagulated with Xarelto, but that was for a DVT. They ruled out PE with a V/Q scan, but he does have persistently elevated markers. I think he needs Cardiology evaluation. Consult was put in today. Echo was unremarkable except for moderate to severe aortic stenosis which he reports is a chronic diagnosis. We will have Cardiology evaluate that as well. 2. Acute kidney injury. May be related to diuretic therapy, hypotension, dehydration. We will hold nephrotoxic drugs, check urine electrolytes, hold his diuretics, continue with fluids, and follow clinically. He has improved with hydration. 3. Rhabdomyolysis. He does have a persistently elevated CPK but the level is only about 600-700. He was not down for an extended period of time so I am not entirely sure this is true rhabdo. He is on a statin. We are going to hold that and follow clinically. 4. Chronic pain disorder. Patient is very adamant about resuming his pain medications so we will continue to monitor on his current medications. 5. Deep venous thrombosis. He is currently on Lovenox. He was on Xarelto previously. DISPOSITION: Pending his workup he obviously will need normal renal function before we can entertain thoughts of a left heart catheterization if cardiology decides that is indicated. Awaiting their opinion. cc: Castillo Javier MD
[2017-07-10 15:14] LABS: CK INDEX 4.7 (0.0-2.5); CK-MB 12.65 ng/mL (0.0-5.0)
[2017-07-10] MEDS: MS CONTIN PO SCH (15:27)
--- NOTE | 2017-07-10 15:42 | Diag Imaging Result Doc PS360 ---
EXAM: US RENAL 2 (RETROPER) COMPLETE INDICATION: nathalie/arf TECHNIQUE: COMPARISON: None. FINDINGS: The renal echotexture is increased bilaterally, which is a nonspecific indicator of medical renal disease. There is a cystic structure that appears to arise from the inferior aspect of the right kidney measuring up to 3.7 cm in the greatest dimension. No solid renal masses or hydronephrosis can be identified. The right kidney measures 7.5 cm and the left kidney measures 10.3 cm in the greatest longitudinal axes. Right renal cortex measures 0.8 cm in the left renal cortex measures 1.1 cm in thickness. There is a Woodward catheter in the urinary bladder and the bladder is nondistended. IMPRESSION: Increased renal echotexture, which is a nonspecific indicator of medical renal disease. Electronically signed by Noel Mcintyre 07/10/2017 3:40 PM
--- NOTE | 2017-07-10 17:17 | CONSULTATION ---
DATE OF CONSULTATION: 07/10/2017 IMPRESSION: 1. Abnormal cardiac enzymes most consistent with skeletal muscle etiology. INCOMPLETE REPORT - DICTATION STOPS HERE cc: Froilan Blum MD
--- NOTE | 2017-07-10 18:11 | CONSULTATION ---
DATE OF CONSULTATION: 07/10/2017 IMPRESSION: 1. Abnormal cardiac enzymes. Given significant prerenal azotemia and clinical presentation, suspect this is largely related to intravascular volume depletion and skeletal muscle etiology. However, he also appears to have significant aortic stenosis and a component of this may have been related to cardiac stress imposed by volume depletion superimposed on significant aortic stenosis. There has been no chest pain nor ECG changes to suggest acute myocardial infarction. 2. Aortic stenosis, probably severe by exam. Echocardiography, as reported, not felt to be accurate on valve area. 3. Early dementia. The patient currently resides in assisted living. 4. Hypertension. 5. History of left breast cancer and previous left mastectomy. RECOMMENDATIONS: 1. Presence of aortic stenosis discussed with the patient and his son. Conservative/medical management desired, in light of patient's limited functional limitations. 2. Intravenous hydration. 3. Would review use of diuretic Lasix and consider discontinuing this medication. 4. Empiric aspirin daily to continue. The patient also noted to be on clopidogrel, with history of previous transient ischemic attack. HISTORY: This 87-year-old white male, with past history of gross dementia, hypertension and murmur, was admitted from assisted living after he was found lying in his room. His son relates that he has not been eating well of late. He started to become weak. Son was actually having to assist him. Last night, the patient was found by the assisted living staff at his desk when they came to seek came to come for evening meal. He awoke and acknowledged their request. After they left, he got up and felt very weak, and sat down on the floor. He felt lightheaded. There was no syncope or chest pain. He was found in his room on the floor, and brought to the emergency room for evaluation. He is noted to have mild elevation in CPK, and troponin just above upper limit of normal. Prerenal azotemia was evident in his lab work. He is being treated with IV fluids. He had aortic murmur, and echocardiography suggested. At least moderate to severe aortic stenosis, although the accuracy of the study was not felt to allow calculation of a valve area. The patient has no history of coronary disease or chest pain. PAST MEDICAL HISTORY: 1. Early dementia. 2. Hypertension. 3. Murmur. 4. Transient ischemic attack. 5. Hypothyroidism. 6. History of peptic ulcer disease, with history of gastric ulcers. 7. History of breast cancer and left mastectomy. 8. 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 PAST SURGICAL HISTORY: Includes: 1. Subtotal gastrectomy. 2. Left mastectomy. 3. Multiple back surgeries. 4. Unspecified left foot surgery. 5. Deviated septum repair. ALLERGIES: He has no known drug allergies. MEDICATIONS PRIOR TO ADMISSION: As listed. It is noteworthy that he has been on Lasix. SOCIAL HISTORY: He does not smoke or use alcohol. 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 FAMILY HISTORY: Negative for premature coronary disease. REVIEW OF SYSTEMS: Pulmonary: Negative. Gastrointestinal: Negative. Constitutional: Negative, beyond history of present illness. Remainder of review of systems negative/noncontributory, with 14 total systems reviewed. PHYSICAL EXAMINATION: General: This is a pleasant, elderly, white male in no distress. He insists that he has met me before, despite the fact that I have never seen him before. He is in no distress. Vital signs: Blood pressure 137/60, heart rate 100 and regular. HEENT: Extraocular movements intact. Mucous membranes are moist. Neck: Supple. No jugular venous distention. There are no carotid bruits. Chest: Clear to auscultation. Cardiac Exam: Reveals a regular rate and rhythm, with a grade 2/6 to 3/6 crescendo/decrescendo systolic murmur at the right upper sternal external border. Second heart sound is not audible. No gallop could be appreciated. Abdomen: Soft, nontender. Extremities: Without edema. Neurologic: Reveals him to be alert and responsive. Speech is fluent. Moves all 4 extremities equally well. Skin: Warm and dry. Psychiatric: Mood to be appropriate. DIAGNOSTIC DATA: ECG demonstrates sinus tachycardia, but is otherwise within normal limits. LABORATORY DATA: Includes BUN 49, creatinine 2.6. CPK 666, with a CPK MB of 23.08, and a CPK MB index of 3.5, and a troponin-T of 0.13. cc: Froilan Blum MD
[2017-07-10] MEDS: LOVENOX SUBQ SCH (20:05)
[2017-07-10] MEDS: CYMBALTA PO SCH (20:05)
[2017-07-11] MEDS: MS CONTIN PO SCH ×4 (00:38→20:08)
[2017-07-11] MEDS: NS 1,000 ML IV SCH ×2 (02:47→05:37)
[2017-07-11] MEDS: SYNTHROID PO SCH ×2 (05:31→06:17)
[2017-07-11] MEDS: PROTONIX IV SCH ×2 (05:32→15:57)
[2017-07-11 06:14] LABS: HEMATOCRIT 27.8 % (42.0-52.0); HEMOGLOBIN 8.8 g/dL (14.0-18.0); MCHC 31.7 g/dL (33-37); MCV 101.1 FL (81-99); RBC 2.75 XMIL (4.7-6.1)
[2017-07-11] MEDS: ZANTAC PO SCH ×2 (06:17→15:57)
[2017-07-11 06:40] LABS: CALCIUM 7.5 mg/dL (8.8-10.2); POTASSIUM 4.3 mmol/L (3.5-5.1)
[2017-07-11] MEDS: FIBERCON PO SCH ×2 (09:31→20:08)
[2017-07-11] MEDS: ASPIRIN PO SCH (09:32)
[2017-07-11] MEDS: PLAVIX PO SCH (09:32)
[2017-07-11] MEDS: NUVIGIL PO SCH (09:32)
[2017-07-11] MEDS: XANAX PO SCH ×3 (09:32→16:36)
[2017-07-11] MEDS: FLOMAX PO SCH ×2 (09:32→20:08)
[2017-07-11] MEDS: NORVASC PO SCH (09:32)
[2017-07-11] MEDS ORDERED: NS 1,000 ML IV SCH (15:28)
[2017-07-11] MEDS: LOVENOX SUBQ SCH (20:09)
[2017-07-11] MEDS: CYMBALTA PO SCH (20:09)
[2017-07-12] MEDS: PROTONIX IV SCH ×2 (03:08→15:39)
[2017-07-12] MEDS: MS CONTIN PO SCH ×3 (04:07→20:56)
[2017-07-12] MEDS: SYNTHROID PO SCH (06:10)
[2017-07-12 06:29] LABS: HEMOGLOBIN 8.6 g/dL (14.0-18.0); MCH 31.7 PG (27-31); MCHC 31.9 g/dL (33-37); MCV 99.6 FL (81-99); MPV 9.4 FL (7.4-10.4); RBC 2.71 XMIL (4.7-6.1)
[2017-07-12 06:32] LABS: CALCIUM 7.7 mg/dL (8.8-10.2); MAGNESIUM 1.6 mg/dL (1.5-2.7); POTASSIUM 3.8 mmol/L (3.5-5.1)
[2017-07-12] MEDS: NUVIGIL PO SCH (08:54)
[2017-07-12] MEDS: XANAX PO SCH ×3 (08:54→16:58)
[2017-07-12] MEDS: PLAVIX PO SCH (08:55)
[2017-07-12] MEDS: NORVASC PO SCH (08:55)
[2017-07-12] MEDS: FIBERCON PO SCH ×2 (08:55→20:56)
[2017-07-12] MEDS: ASPIRIN PO SCH (08:55)
[2017-07-12] MEDS: FLOMAX PO SCH ×2 (08:55→20:57)
[2017-07-12] MEDS: ZANTAC PO SCH ×2 (08:56→15:39)
[2017-07-12] MEDS ORDERED: LACTULOSE PO PRN (09:18)
[2017-07-12] MEDS: CYMBALTA PO SCH (20:56)
[2017-07-12] MEDS: ELIQUIS PO SCH (20:57)
[2017-07-13] MEDS: MS CONTIN PO SCH ×2 (05:01→13:11)
[2017-07-13 05:59] LABS: HEMATOCRIT 28.2 % (42.0-52.0); HEMOGLOBIN 9.1 g/dL (14.0-18.0); MCH 31.8 PG (27-31); MCHC 32.3 g/dL (33-37); MCV 98.6 FL (81-99); MPV 9.4 FL (7.4-10.4); RBC 2.86 XMIL (4.7-6.1)
[2017-07-13 06:02] LABS: CALCIUM 7.8 mg/dL (8.8-10.2)
[2017-07-13] MEDS: SYNTHROID PO SCH (06:20)
[2017-07-13] MEDS ORDERED: PRILOSEC PO SCH (07:00)
[2017-07-13] MEDS: ASPIRIN PO SCH (08:20)
[2017-07-13] MEDS: PLAVIX PO SCH (08:20)
[2017-07-13] MEDS: NORVASC PO SCH (08:20)
[2017-07-13] MEDS: XANAX PO SCH ×2 (08:20→13:10)
[2017-07-13] MEDS: FIBERCON PO SCH (08:20)
[2017-07-13] MEDS: NUVIGIL PO SCH (08:20)
[2017-07-13] MEDS: FLOMAX PO SCH (08:20)
[2017-07-13] MEDS: ZANTAC PO SCH (08:21)
[2017-07-13] MEDS: ELIQUIS PO SCH (08:21)
--- NOTE | 2017-07-13 12:04 | DISCHARGE SUMMARY ---
ADMISSION DATE: 07/09/2017 DISCHARGE DATE: 07/13/2017 DISCHARGE DIAGNOSES: 1. Elevated troponins likely related to rhabdomyolysis and not true ischemic event. 2. Acute kidney injury. 3. Chronic pain disorder. 4. Recent deep venous thrombosis to his right lower extremity. ADMISSION DIAGNOSES: 1. Elevated troponins. 2. Weakness. 3. Acute kidney injury. 4. Rhabdomyolysis. 5. Recent right popliteal deep venous thrombosis. 6. Chronic pain. 7. Hypertension. 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 Apparently he has not been eating or drinking very well. He is at an assisted living. They found him unresponsive but at least had an episode of essentially syncope. He was not incontinent of stool. No visible seizures. CPK was elevated at 741. Creatinine 2.6 with no history of renal failure. Troponin was 0.151. He was on Xarelto as of May for the DVT. The patient was admitted, placed on IV fluids. He had a V/Q scan done because of his DVT PE history which was believed unremarkable. Negative for PE. Echocardiogram showed normal EF of 72%. He had moderate to severe aortic stenosis. However, valve area could not be calculated. Mean gradient though was 32. There was no diastolic dysfunction. He had mild to moderate pulmonary hypertension. Aortic stenosis was an established diagnosis for him. The patient slowly clinically improved. On 07/10/2017, his creatinine had decreased to 2.2. Troponins were still elevated. We did consult Cardiology. Dr. Blum did not feel strongly that this was an ischemic event and made some recommendations as far as treatment. We had switched him from Xarelto to Lovenox which he had been on pretty much since he has been here at renal dosing. Reinstituted his pain medication. He did have some rhabdomyolysis which slowly improved or was improving at the time of discharge. He still had persistent weakness and difficulty ambulating. At time of discharge, he is sitting up in chair and seems to be in good spirits. Hemoglobin and hematocrit are 9 and 28, really unremarkable exam. Creatinine is down to 1.2. B12 and folate levels were normal. He was felt stable for discharge to rehab. Saturations were 91% on 2 L but had been 99% to 100% since he has been here. He also had a renal ultrasound accomplished which showed some medical renal disease, but nothing specific. DISCHARGE MEDICATIONS: Tylenol 650 p.r.n., Zyloprim 300 daily, Xanax 0.5 t.i.d. and 1 during the day, Lotrel of 03/31, Nuvigil 250 daily, aspirin 81 daily, Tessalon Perles p.r.n., clobetasol cream, Plavix 75 daily, Cymbalta 30 daily, Lasix 20 daily, Lantiseptic b.i.d., Synthroid 50 daily, Imodium p.r.n., Robaxin 750 b.i.d., MS Contin 30 q.8 h. which is an established medication, multivitamin, Zofran 4 q.8 h., Percocet 10s p.r.n., Pravachol 80 daily, Compazine p.r.n., Phenergan p.r.n., not sure he needs both of those, let us just stop his Compazine. Ranitidine 150 b.i.d., Flomax 0.4 b.i.d. and Benefiber. I am also going to institute Eliquis 5 mg b.i.d. instead of his Xarelto just because of the renal insufficiency issues, I think it will be a little bit more manageable. DISPOSITION: I would recommend follow up CBC and basic in 1 week. He is being discharged to inpatient rehab at [facility]. TIME SPENT: 32 minute discharge. cc: MD Ag Cortez MD William D. Denney, MD
[2017-07-13 12:11] VITALS: BP 166/82
== END 2017-07-13 13:50 ==
LOC: P.ED 09:58 → SUATTDRO 15:16 → P.MEDSURG 15:16
PROVIDERS: ATTEND Internal Medicine